=== PATIENT | female | born 1970 | race American Indian/Alaskan Native ===

== ENCOUNTER 2019-12-13 20:06 | Observation (INO) | payer MEDICARE ==
[2019-12-13] MEDS ORDERED: ASPIRIN 325 MG TAB PO ONE (20:57)
--- NOTE | 2019-12-13 22:06 | XRay Report ---
CHEST 1 VIEW INDICATION: Chest Pain COMPARISON: None FINDINGS: SUPPORT DEVICES: None. HEART / MEDIASTINUM: Mild cardiac enlargement LUNGS / PLEURA: Interstitial markings are prominent. No pneumothorax. ADDITIONAL FINDINGS: IMPRESSION: 1. Diffuse interstitial pulmonary edema questionable left ventricular decompensation Signer Name: Petr Moraes MD Signed: 12/13/2019 10:02 PM Workstation Name: [id number]
[2019-12-13 22:09] LABS: Basophils % (Auto) 0.6 % (0.0-1.8); Eosinophils # (Auto) 0.2 K/mm3 (0.0-0.4); Eosinophils % (Auto) 2.5 % (0.0-4.3); Lymphocytes # (Auto) 2.2 K/mm3 (1.2-5.4); Lymphocytes % (Auto) 33.5 % (13.4-35.0); Mean Corpuscular HGB Conc 30 % (30-34); Monocytes # (Auto) 0.7 K/mm3 (0.0-0.8); Monocytes % (Auto) 10.9 % (0.0-7.3); Platelet Count 219 K/mm3 (140-440); Red Cell Distribution Width 18.9 % (13.2-15.2)
[2019-12-13 22:10] LABS: Hemoglobin 11.8 gm/dl (10.1-14.3); Mean Corpuscular Volume 65 fl (79-97)
--- NOTE | 2019-12-13 22:10 | Emergency Department Report ---
ED Shortness of Breath HPI - General Chief Complaint: Dyspnea/Respdistress Stated Complaint: RT SIDE PAIN Time Seen by Provider: 12/13/19 21:59 Source: patient Mode of arrival: Ambulatory Limitations: No Limitations - History of Present Illness Initial Comments: Patient is a 49-year-old female that presents emergency room with complaints of shortness of breath, dizziness, difficulties breathing, right-sided body pain. Patient states her symptoms started 2 days ago. Patient dates her symptoms are worsening. Patient denies syncope. Patient denies chest pain. Patient denies fever or chills. Patient denies cough. Patient states that the right-sided body pain is a 10 out of 10. Patient states the body pain is worse with movement and better with rest. Patient denies blurry vision. Patient denies headache. Patient states she has a history of asthma but states this does not feel like asthma. Patient denies cough and wheezing. Patient states her asthma has been controlled. Patient denies recent travel. Patient denies recent international travel. Patient denies exposure to the novel coronavirus. Patient denies sick contacts. Patient denies fever and chills. Patient denies cough. Patient denies diarrhea. Patient denies coming in contact with anybody with symptoms of the novel coronavirus. Complaint: shortness of breath -: Sudden Severity: severe Pain Scale: 10 Quality: stabbing Consistency: constant Improves With: rest Worsens With: movement Known History Of: asthma, other (h/o anemia) Treatments Prior to Arrival: none - Related Data Home Medications Medication Instructions Recorded Confirmed Last Taken ALBUTEROL Inhaler(NF) [VENTOLIN 1 inh PO DAILY PRN 01/19/18 01/19/18 Unknown Inhaler(NF)] Azelastine HCl [Azelastine HCl 1 drop OU BID 01/19/18 01/19/18 Unknown 0.05%] Dronedarone HCl [Multaq] 400 mg PO DAILY 01/19/18 01/19/18 Unknown Ferrous Sulfate [Feosol] 325 mg PO TID 01/19/18 01/19/18 Unknown Fluorometholone Acetate [Flarex 1 - 2 drops OP BID 01/19/18 01/19/18 Unknown 0.1% Eye Drops] Gabapentin [Neurontin] 300 mg PO Q8HR 01/19/18 01/19/18 Unknown Metoprolol [Lopressor] 25 mg PO BID 01/19/18 01/19/18 Unknown Midodrine [Proamatine] 5 mg PO BID 01/19/18 01/19/18 Unknown Morphine [Morphine TAB] 15 mg PO BID 01/19/18 01/19/18 Unknown Previous Rx's Medication Instructions Recorded Last Taken Type Ibuprofen [Motrin 800 MG tab] 800 mg PO Q8HR #30 tablet 01/20/18 Unknown Rx Allergies Allergy/AdvReac Type Severity Reaction Status Date / Time ciprofloxacin [From Cipro] Allergy Swelling Verified 01/19/18 22:00 hydrocodone Allergy Hives Verified 01/19/18 22:00 meperidine [From Demerol] Allergy Hives Verified 01/19/18 22:00 metronidazole [From Flagyl] Allergy Hives Verified 01/19/18 22:00 Penicillins Allergy Unknown Verified 01/19/18 22:00 tramadol Allergy Rash Verified 01/19/18 22:00 ED Review of Systems ROS: Stated complaint: RT SIDE PAIN Other details as noted in HPI Constitutional: denies: chills, fever Eyes: denies: eye pain, eye discharge, vision change ENT: denies: ear pain, throat pain Respiratory: shortness of breath, SOB with exertion, SOB at rest. denies: cough, wheezing Cardiovascular: denies: chest pain, palpitations Endocrine: no symptoms reported Gastrointestinal: denies: abdominal pain, nausea, diarrhea Genitourinary: denies: urgency, dysuria, discharge Musculoskeletal: denies: back pain, joint swelling, arthralgia Skin: denies: rash, lesions Neurological: denies: headache, weakness, paresthesias Psychiatric: denies: anxiety, depression Hematological/Lymphatic: denies: easy bleeding, easy bruising ED Past Medical Hx - Past Medical History Previous Medical History?: Yes Hx Headaches / Migraines: Yes Hx Asthma: Yes Additional medical history: syncope episode, atrial fibrillation, loop recorder,anemia-blood transfusion,hydraenitis. MORBID OBESITY - Surgical History Past Surgical History?: Yes Additional Surgical History: UFE, Lumber surgery,infection in breast,. UTERINE EMBOLIZATION. Loop recorder - Family History Family history: no significant - Social History Smoking Status: Never Smoker Substance Use Type: None - Medications Home Medications: Home Medications Medication Instructions Recorded Confirmed Last Taken Type ALBUTEROL Inhaler(NF) [VENTOLIN 1 inh PO DAILY PRN 01/19/18 01/19/18 Unknown History Inhaler(NF)] Azelastine HCl [Azelastine HCl 1 drop OU BID 01/19/18 01/19/18 Unknown History 0.05%] Dronedarone HCl [Multaq] 400 mg PO DAILY 01/19/18 01/19/18 Unknown History Ferrous Sulfate [Feosol] 325 mg PO TID 01/19/18 01/19/18 Unknown History Fluorometholone Acetate [Flarex 1 - 2 drops OP BID 01/19/18 01/19/18 Unknown History 0.1% Eye Drops] Gabapentin [Neurontin] 300 mg PO Q8HR 01/19/18 01/19/18 Unknown History Metoprolol [Lopressor] 25 mg PO BID 01/19/18 01/19/18 Unknown History Midodrine [Proamatine] 5 mg PO BID 01/19/18 01/19/18 Unknown History Morphine [Morphine TAB] 15 mg PO BID 01/19/18 01/19/18 Unknown History Ibuprofen [Motrin 800 MG tab] 800 mg PO Q8HR #30 tablet 01/20/18 Unknown Rx ED Physical Exam - General Limitations: No Limitations General appearance: alert, in no apparent distress, obese - Head Head exam: Present: atraumatic, normocephalic - Eye Eye exam: Present: normal appearance - ENT ENT exam: Present: mucous membranes moist - Neck Neck exam: Present: normal inspection - Respiratory Respiratory exam: Present: normal lung sounds bilaterally, decreased breath sounds. Absent: respiratory distress, wheezes, rales - Cardiovascular Cardiovascular Exam: Present: regular rate, normal rhythm. Absent: systolic murmur, diastolic murmur, rubs, gallop - GI/Abdominal GI/Abdominal exam: Present: soft, normal bowel sounds - Extremities Exam Extremities exam: Present: normal inspection - Back Exam Back exam: Present: normal inspection - Neurological Exam Neurological exam: Present: alert, oriented X3 - Psychiatric Psychiatric exam: Present: normal affect, normal mood - Skin Skin exam: Present: warm, dry, intact, normal color. Absent: rash ED Course Vital Signs 12/13/19 12/13/19 12/13/19 20:44 22:51 23:15 Temperature 97.9 F Pulse Rate 94 H Respiratory 18 14 Rate Blood Pressure 177/111 193/109 O2 Sat by Pulse 100 Oximetry 12/13/19 12/13/19 12/14/19 23:31 23:45 00:00 Temperature Pulse Rate Respiratory Rate Blood Pressure 158/94 158/94 154/100 O2 Sat by Pulse 100 100 100 Oximetry 12/14/19 12/14/19 12/14/19 00:15 01:11 01:15 Temperature Pulse Rate 93 H 96 H 90 Respiratory 21 14 21 Rate Blood Pressure 154/100 149/92 148/89 O2 Sat by Pulse 100 100 100 Oximetry 12/14/19 01:30 Temperature Pulse Rate 103 H Respiratory 12 Rate Blood Pressure 144/90 O2 Sat by Pulse 98 Oximetry - Reevaluation(s) Reevaluation #1: Patient states her pain is better. 12/14/19 00:06 Reevaluation #2: I discussed all results with patient. I discussed plan of care with patient. Patient agrees with plan of care and admission. Patient to be admitted to the hospitalist service. 12/14/19 01:27 - Consultations Consultation #1: Hospitalist consulted for admission. Hospitalist to admit patient. 12/14/19 01:17 ED Medical Decision Making - Lab Data Result diagrams: 12/13/19 21:44 12/13/19 21:44 - EKG Data -: EKG Interpreted by [facility] EKG shows normal: axis, intervals, QRS complexes, ST-T waves Rate: normal - EKG Data Interpretation: other (Atrial fibrillation) - Radiology Data Radiology results: report reviewed CHEST 1 VIEW INDICATION: Chest Pain COMPARISON: None FINDINGS: SUPPORT DEVICES: None. HEART / MEDIASTINUM: Mild cardiac enlargement LUNGS / PLEURA: Interstitial markings are prominent. No pneumothorax. ADDITIONAL FINDINGS: IMPRESSION: 1. Diffuse interstitial pulmonary edema questionable left ventricular decompensation CTA of the chest with 3D Reconstruction Indication: ,sob. hypoxia Technique: TECHNIQUE: Axial CT images were obtained through the chest after injection of 100 cc of Omnipaque 350 IV contrast. 3 plane MIP reconstructions were produced. All CT scans at this location are pe rformed using CT dose reduction for ALARA by means of automated exposure control. COMPARISON: None Automatic exposure control was utilized in an attempt to reduce radiation dose. Findings: Pulmonary arteries: The main pulmonary artery and right and left pulmonary artery branches fill satisfactorily with contrast. No pulmonary embolus is seen. Lungs: The lungs are clear. Mediastinum: Heart size is normal. No adenopathy is seen. Aorta: Normal in diameter. No dissection seen within limits of this exam. Impression: No pulmonary embolus is seen CT HEAD WITHOUT CONTRAST INDICATION: dizziness TECHNIQUE: Axial slices were obtained through the head. Coronal and sagittal reformatted images were obtained. COMPARISON: None available. FINDINGS: There is no intracranial hemorrhage or extra-axial fluid collection. Ventricles, basilar cisterns, and sulci appear within normal limits for age. There is no mass lesion or midline shift. No acute territorial infarct is identified. Bone windows demonstrate no acute osseous abnormality. Paranasal sinuses and mastoid air cells appear clear. TECHNIQUE: All CT scans at this facility use dose modulation, iterative reconstruction, automated exposure control, weight based dosing, when appropriate, to reduce radiation dose to as low as reasonably achievable. IMPRESSION: 1. No acute intracranial abnormality. - Medical Decision Making Patient is a 49-year-old female that presents emergency room with complaints of shortness of breath and dizziness and left-sided body pain. Patient found to be hypoxic in triage. Patient placed on oxygen. Patient oxygenation responded well to therapy. Patient placed on a environmental monitoring specialist. Patient noted to be in A. fib with a controlled rate. Patient has history of A. fib. Patient had chest x-ray which was shows pulmonary edema. Patient had a head CT for the dizziness. Patient had a CTA due to the shortness of breath and hypoxia. Patient CTA did not show a pulmonary embolism. Patient's labs were essentially unremarkable except for an elevated BNP. Patient's troponin negative x2. Patient was not anemic. Patient given IV Lasix for new onset CHF. Patient admitted to the hospitalist service for further evaluation treatment. - Differential Diagnosis CHF, shortness of breath, hypoxia, pneumonia, anemia, Critical Care Time: Yes Critical care time in (mins) excluding proc time.: 35 Critical care attestation.: If time is entered above; I have spent that time in minutes in the direct care of this critically ill patient, excluding procedure time. Critical Care Time: 35 minutes ED Disposition Clinical Impression: SOB (shortness of breath), Hypoxia, New onset of congestive heart failure, Dizziness, Total body pain Respiratory failure Qualifiers: Chronicity: acute Respiratory failure complication: hypoxia Qualified Code(s): J96.01 - Acute respiratory failure with hypoxia Pulmonary edema Qualifiers: Chronicity: acute Qualified Code(s): J81.0 - Acute pulmonary edema Afib Qualifiers: Atrial fibrillation type: unspecified Qualified Code(s): I48.91 - Unspecified atrial fibrillation Disposition: DC-09 OP ADMIT IP TO THIS HOSP Is pt being admited?: Yes Does the pt Need Aspirin: No Condition: Critical Time of Disposition: 01:26
[2019-12-13] MEDS ORDERED: HYDROmorphone 1 MG/1 ML INJ IV ONE (22:15)
[2019-12-13 22:22] LABS: Blood Urea Nitrogen 11 mg/dL (7-17); Calcium 8.7 mg/dL (8.4-10.2); Hemolysis Index 9
[2019-12-13 22:37] LABS: BUN/Creatinine Ratio 16
--- NOTE | 2019-12-14 00:59 | Cat Scan Report ---
CT HEAD WITHOUT CONTRAST INDICATION: dizziness TECHNIQUE: Axial slices were obtained through the head. Coronal and sagittal reformatted images were obtained. COMPARISON: None available. FINDINGS: There is no intracranial hemorrhage or extra-axial fluid collection. Ventricles, basilar cisterns, an d sulci appear within normal limits for age. There is no mass lesion or midline shift. No acute lis torial infarct is identified. Bone windows demonstrate no acute osseous abnormality. Paranasal sinuses and mastoid air cells appear clear. TECHNIQUE: All CT scans at this facility use dose modulation, iterative reconstruction, automated ex posure control, weight based dosing, when appropriate, to reduce radiation dose to as low as reasonab ly achievable. IMPRESSION: 1. No acute intracranial abnormality. Signer Name: Felix Wayne MD Signed: 12/14/2019 12:54 AM Workstation Name: [id number]
[2019-12-14] MEDS ORDERED: HYDROmorphone 1 MG/1 ML INJ IV ONE (01:11)
--- NOTE | 2019-12-14 01:13 | Cat Scan Report ---
CTA of the chest with 3D Reconstruction Indication: ,sob. hypoxia Technique: TECHNIQUE: Axial CT images were obtained through the chest after injection of 100 cc of Omnipaque 350 IV contrast. 3 plane MIP reconstructions were produced. All CT scans at this location are performed using CT dose reduction for ALARA by means of automated exposure control. COMPARISON: None Automatic exposure control was utilized in an attempt to reduce radiation dose. Findings: Pulmonary arteries: The main pulmonary artery and right and left pulmonary artery branches fill satis factorily with contrast. No pulmonary embolus is seen. Lungs: The lungs are clear. Mediastinum: Heart size is normal. No adenopathy is seen. Aorta: Normal in diameter. No dissection seen within limits of this exam. Impression: No pulmonary embolus is seen Signer Name: Felix Wayne MD Signed: 12/14/2019 1:08 AM Workstation Name: [id number]
[2019-12-14] MEDS ORDERED: FUROSEMIDE 40 MG/4 ML INJ IV ONE ×2 (01:30→04:20)
[2019-12-14] MEDS ORDERED: MAGNESIUM HYDROXIDE (MOM) ORAL LIQD UDC PO PRN (01:48)
[2019-12-14] MEDS ORDERED: ACETAMINOPHEN 325 MG TAB PO PRN (01:48)
[2019-12-14] MEDS ORDERED: ONDANSETRON 4 MG/2 ML INJ IV PRN (01:48)
[2019-12-14] MEDS ORDERED: diphenhydrAMINE 50 MG/ML VIAL IV ONE (01:55)
--- NOTE | 2019-12-14 01:59 | History and Physical Report ---
History of Present Illness Date of examination: 12/14/19 Date of admission: 12/14/2019 Chief complaint: Shortness of Breath History of present illness: 49-year-old -[place] female with known history of asthma, atrial fibrillation, anemia and obesity presenting to the emergency room today complaining of right-sided chest pain or shortness of breath. Patient denies any fever or chills, no nausea or vomiting, no abdominal pain, no hematuria or dysuria. Patient denies any sick contacts and no recent travel. She has had some occasional dizziness but denies any headaches Work-up in the emergency room CT angiogram of the chest shows pulmonary edema, BNP was elevated, CT scan of the head was unremarkable. Patient be admitted for evaluation of her pulmonary edema . Past History Past Medical History: anemia, other (Obesity,Asthma,) Past Surgical History: Other (Uterine embolization, loop recorder placement,Lumbar surgery,) Social history: no significant social history Family history: diabetes (Mother) Medications and Allergies Allergies Allergy/AdvReac Type Severity Reaction Status Date / Time ciprofloxacin [From Cipro] Allergy Swelling Verified 01/19/18 22:00 hydrocodone Allergy Hives Verified 01/19/18 22:00 meperidine [From Demerol] Allergy Hives Verified 01/19/18 22:00 metronidazole [From Flagyl] Allergy Hives Verified 01/19/18 22:00 Penicillins Allergy Unknown Verified 01/19/18 22:00 tramadol Allergy Rash Verified 01/19/18 22:00 Home Medications Medication Instructions Recorded Confirmed Last Taken Type ALBUTEROL Inhaler(NF) [VENTOLIN 1 puff IH DAILY PRN 01/19/18 12/14/19 Unknown History Inhaler(NF)] Dronedarone HCl [Multaq] 400 mg PO DAILY 01/19/18 12/14/19 12/13/19 History Ferrous Sulfate [Feosol] 325 mg PO TID 01/19/18 12/14/19 12/13/19 History Fluorometholone Acetate [Flarex 1 drops OP BID 01/19/18 12/14/19 12/13/19 History 0.1% Eye Drops] Metoprolol [Lopressor] 50 mg PO BID 01/19/18 12/14/19 12/13/19 History Midodrine [Proamatine] 2.5 mg PO BID 01/19/18 12/14/1912/12/20 History Ascorbic Acid/Ascorbate Sodium 500 mg PO DAILY 12/14/19 12/14/19 12/13/19 History [Vit C-Paola Hips 500 mg Chew Tb] Ibuprofen [Motrin 800 MG tab] 800 mg PO Q8HR PRN 12/14/19 12/14/19 Unknown His tory Lifitegrast [Xiidra] 1 each OP BID 12/14/19 12/14/19 12/13/19 History Vitamin D3 5,000 UNIT 5,000 units PO DAILY 12/14/19 12/14/19 12/13/19 History Active Meds: Active Medications Acetaminophen (Tylenol) 650 mg PO Q4H PRN PRN Reason: Pain MILD(1-3)/Fever >100.5/VEGA Enoxaparin Sodium (Enoxaparin) 40 mg SUB-Q QDAY@2200 MARIBEL; Protocol Furosemide (Lasix) 40 mg IV BID@0600,1800 [place] Magnesium Hydroxide (Milk Of Magnesia) 30 ml PO Q4H PRN PRN Reason: Constipation Ondansetron HCl (Zofran) 4 mg IV Q8H PRN PRN Reason: Nausea And Vomiting Sodium Chloride (Sodium Chloride Flush Syringe 10 Ml) 10 ml IV BID MARIBEL Sodium Chloride (Sodium Chloride Flush Syringe 10 Ml) 10 ml IV PRN PRN PRN Reason: LINE FLUSH Review of Systems Constitutional: no fever, no chills Ears, nose, mouth and throat: no nasal congestion, no sore throat Cardiovascular: no chest pain, no palpitations, no syncope Respiratory: shortness of breath, no cough Gastrointestinal: no nausea, no vomiting, no diarrhea Genitourinary Female: no flank pain, no dysuria, no hematuria Musculoskeletal: no neck pain, no low back pain Integumentary: no rash, no pruritis Neurological: no headaches, no confusion Psychiatric: no anxiety, no depression Exam - Constitutional Vitals: Temp Pulse Resp BP Pulse Ox 97.9 F 103 H 12 144/90 98 12/13/19 20:44 12/14/19 01:30 12/14/19 01:30 12/14/19 01:30 12/14/19 01:30 General appearance: Present: no acute distress, well-nourished, obese - EENT Eyes: Present: PERRL, EOM intact ENT: hearing intact, clear oral mucosa, dentition normal - Neck Neck: Present: supple, normal ROM - Respiratory Respiratory effort: normal Respiratory: bilateral: diminished - Cardiovascular Rhythm: regular Heart Sounds: Present: S1 & S2. Absent: gallop, systolic murmur, diastolic murmur, rub - Extremities Extremities: no ischemia, pulses intact, Full ROM Extremity abnormal: edema (Trace Bilateral ankle edema) Peripheral Pulses: within normal limits - Abdominal General gastrointestinal: Present: soft, non-tender, non-distended, normal bowel sounds. Absent: mass - Integumentary Integumentary: Present: clear, warm, dry - Musculoskeletal Musculoskeletal: strength equal bilaterally - Psychiatric Psychiatric: appropriate mood/affect, intact judgment & insight, memory intact, cooperative - Neurologic Neurologic: CNII-XII intact, no focal deficits, moves all extremities HEART Score - HEART Score Troponin: Troponin T < 0.010 ng/mL (0.00-0.029) 12/13/19 23:25 Results - Labs CBC & Chem 7: 12/13/19 21:44 12/13/19 21:44 Labs: Abnormal lab results 12/13/19 Range/Units 21:44 RBC 6.00 H (3.65-5.03) M/mm3 MCV 65 L (79-97) fl MCH 20 L (28-32) pg RDW 18.9 H (13.2-15.2) % [place] % (Auto) 10.9 H (0.0-7.3) % Assessment and Plan - Patient Problems (1) New onset of congestive heart failure Current Visit: Yes Status: Acute Plan to address problem: Patient admitted and placed on diuretics. Will check inputs and outputs and also monitor daily weights. Patient will be scheduled for echocardiogram. We will place consult to cardiology for evaluation and recommendation. (2) Hypoxia Current Visit: Yes Status: Acute Plan to address problem: Possibly secondary to early pulmonary edema. We will keep oxygen saturation greater or equal to 92%. (3) Morbid obesity with BMI of 50.0-59.9, adult Current Visit: Yes Status: Acute Plan to address problem: Patient counseled on weight reduction. We will schedule dietary consult. (4) History of atrial fibrillation Current Visit: Yes Status: Acute Plan to address problem: Rate is controlled. We will continue routine home medications. (5) DVT prophylaxis Current Visit: Yes Status: Acute Plan to address problem: Patient placed on subcutaneous Lovenox. (6) Full code status Current Visit: Yes Status: Acute
[2019-12-14] MEDS ORDERED: FUROSEMIDE 40 MG/4 ML INJ IV SCH (06:00)
[2019-12-14] MEDS ORDERED: IBUPROFEN 800 MG TAB PO PRN (07:06)
[2019-12-14] MEDS ORDERED: ALBUTEROL 2.5 MG/3 ML NEBU IH PRN (07:12)
[2019-12-14] MEDS: FERROUS SULFATE 325 MG TAB PO SCH ×2 (08:00→14:43)
--- NOTE | 2019-12-14 09:08 | Consultation ---
History of Present Illness Consult date: 12/14/19 Consult reason: atrial fibrillation History of present illness: Patient is presenting with right sided pain extending from her shoulder all the way down to her right foot. Patient denies chest pain or shortness of breath. Patient is visiting from [place]. She has a psychiatric arnp in [place] following her for atrial fibrillation and recurrent syncope. She has am implantable loop recorder. Patient denies acute episodes of syncope prior to admission. Patient states that she had a cardiac work-up included stress test and echo back in April 2019 - results were normal. ECG is showing atrial fibrillation. CT chest showing NAP. BNP is normal. Troponin negative x 2. Patient reports history of cervical spine disease (bulgind disc). She was planned for outpatient surgery at one time. Past History Past Medical History: anemia, other (Obesity,Asthma,) Past Surgical History: Other (Uterine embolization, loop recorder placement,Lumbar surgery,) Social history: no significant social history Family history: diabetes (Mother) Medications and Allergies Allergies Allergy/AdvReac Type Severity Reaction Status Date / Time ciprofloxacin [From Cipro] Allergy Swelling Verified 01/19/18 22:00 hydrocodone Allergy Hives Verified 01/19/18 22:00 meperidine [From Demerol] Allergy Hives Verified 01/19/18 22:00 metronidazole [From Flagyl] Allergy Hives Verified 01/19/18 22:00 Penicillins Allergy Unknown Verified 01/19/18 22:00 tramadol Allergy Rash Verified 01/19/18 22:00 Home Medications Medication Instructions Recorded Confirmed Last Taken Type ALBUTEROL Inhaler(NF) [VENTOLIN 1 puff IH DAILY PRN 01/19/18 12/14/19 Unknown History Inhaler(NF)] Dronedarone HCl [Multaq] 400 mg PO DAILY 01/19/18 12/14/19 12/13/19 History Ferrous Sulfate [Feosol] 325 mg PO TID 01/19/18 12/14/19 12/13/19 History Fluorometholone Acetate [Flarex 1 drops OP BID 01/19/18 12/14/19 12/13/19 History 0.1% Eye Drops] Metoprolol [Lopressor] 50 mg PO BID 01/19/18 12/14/19 12/13/19 History Midodrine [Proamatine] 2.5 mg PO BID 1112/14/19 12/13/19 History Ascorbic Acid/Ascorbate Sodium 500 mg PO DAILY 12/14/19 12/14/19 12/13/19 History [Vit C-[place] Hips 500 mg Chew Tb] Ibuprofen [Motrin 800 MG tab] 800 mg PO Q8HR PRN 12/14/19 12/14/19 Unknown History Lifitegrast [Xiidra] 1 each OP BID 12/14/19 12/14/19 12/13/19 History Vitamin D3 5,000 UNIT 5,000 units PO DAILY 12/14/19 12/14/19 12/13/19 History Active Meds: Active Medications Acetaminophen (Tylenol) 650 mg PO Q4H PRN PRN Reason: Pain MILD(1-3)/Fever >100.5/VEGA Last Admin: 12/14/19 06:50 Dose: 650 mg Documented by: Albuterol (Proventil) 2.5 mg IH Q4HRT PRN PRN Reason: Shortness Of Breath Ascorbic Acid (Vitamin C) 500 mg PO QDAY [facility] Cholecalciferol (Vitamin D3) 5,000 unit PO DAILY [facility] Enoxaparin Sodium (Enoxaparin) 40 mg SUB-Q QDAY@2200 [facility]; Protocol Ferrous Sulfate (Feosol) 325 mg PO TID [facility] Ibuprofen (Ibuprofen) 800 mg PO Q8HR PRN PRN Reason: Pain, Moderate (4-6) Magnesium Hydroxide (Milk Of Magnesia) 30 ml PO Q4H PRN PRN Reason: Constipation Metoprolol Tartrate (Metoprolol) 50 mg PO BID [facility] Midodrine (Proamatine) 2.5 mg PO BID [facility] Miscellaneous Medication (Dronedarone Hcl [Multaq]) 400 mg PO DAILY [facility] Miscellaneous Medication (Fluorometholone Acetate [Flarex 0.1% Eye Drops]) 1 drops OP BID [facility] Miscellaneous Medication (Lifitegrast [Xiidra]) 1 each OP BID [facility] Ondansetron HCl (Zofran) 4 mg IV Q8H PRN PRN Reason: Nausea And Vomiting Sodium Chloride (Sodium Chloride Flush Syringe 10 Ml) 10 ml IV BID [facility] Sodium Chloride (Sodium Chloride Flush Syringe 10 Ml) 10 ml IV PRN PRN PRN Reason: LINE FLUSH Review of Systems All systems: negative Physical Examination Vital Signs Temp Resp BP 97.9 F 18 177/111 12/13/19 20:44 12/13/19 20:44 12/13/19 20:44 General appearance: no acute distress HEENT: Positive: PERRL Neck: Positive: neck supple Cardiac: Positive: irregularly irregular Lungs: Positive: Normal Exam Abdomen: Positive: Unremarkable Extremities: Present: edema Results 12/13/19 21:44 12/13/19 21:44 CBC 12/13/19 Range/Units 21:44 WBC 6.5 (4.5-11.0) K/mm3 RBC 6.00 H (3.65-5.03) M/mm3 Hgb 11.8 (10.1-14.3) gm/dl Hct 39.0 (30.3-42.9) % Plt Count 219 (140-440) K/mm3 Lymph # (Auto) 2.2 (1.2-5.4) K/mm3 [place] # (Auto) 0.7 (0.0-0.8) K/mm3 Eos # (Auto) 0.2 (0.0-0.4) K/mm3 Baso # (Auto) 0.0 (0.0-0.1) K/mm3 Comprehensive Metabolic Panel 12/13/19 Range/Units 21:44 Sodium 138 (137-145) mmol/L Potassium 4.3 (3.6-5.0) mmol/L Chloride 100.0 (98-107) mmol/L Carbon Dioxide 24 (22-30) mmol/L BUN 11 (7-17) mg/dL Creatinine 0.7 (0.6-1.2) mg/dL Glucose 87 (65-100) mg/dL Calcium 8.7 (8.4-10.2) mg/dL - EKG Interpretation EKG shows: atrial fibrillation EKG interpretations - Telemetry EKG Rhythm: Atrial Fibrillation Assessment and Plan Persistent atrial fibrillation - rate controlled CHADS-VASC = 2 (female and hypertension) Essential primary hypertension Recurrent syncope s/p loop recorder Right sided bodily pain No chest pain Troponin negative Normal BNP Normal CT chest Prior cardiac work-up April 2019 in [place] - negative per patient Morbid obesity Recommendations: Continue metoprolol for rate control Start eliquis 5 mg po bid Discontinue dronaderone No further cardiac work-up is needed Patient should follow with her ortho/neurosurgeon as outpatient to address neck pain and radiculopathy symptoms.
[2019-12-14] MEDS ORDERED: METOPROLOL TARTRATE 25 MG TAB PO SCH (10:00)
[2019-12-14] MEDS ORDERED: MIDODRINE 5 MG TAB PO SCH (10:00)
[2019-12-14] MEDS ORDERED: DRONEDARONE HCL 400 MG PO SCH (10:00)
[2019-12-14] MEDS ORDERED: LIFITEGRAST OP SCH (10:00)
[2019-12-14] MEDS ORDERED: APIXABAN 5 MG TAB PO SCH (10:00)
[2019-12-14] MEDS ORDERED: ASCORBIC ACID 500 MG TAB PO SCH (10:00)
[2019-12-14] MEDS ORDERED: CHOLECALCIFEROL (VIT D3) 5,000 UNIT TAB PO SCH (10:00)
[2019-12-14] MEDS ORDERED: FLUOROMETHOLONE ACETATE OP SCH (10:00)
--- NOTE | 2019-12-14 10:55 | Progress Note ---
Assessment and Plan (1) New onset of congestive heart failure Current Visit: Yes Status: Acute Plan to address problem: Continue diuretics, monitor I/O and daily weights. echocardiogram f/u with report cardiology consult for evaluation and recommendation. continue BB and start eliquis 5 mg BID No Further cardiac work up recommended Patient should follow with her ortho/neurosurgeon as outpatient to address neck pain and radiculopathy symptoms. (2) Hypoxia likely 2/2 to pulmonary edema Current Visit: Yes Status: Acute Plan to address problem: Continue diuretic oxygen supplement keep 02 sat > 92% (3) Morbid obesity with BMI of 50.0-59.9, adult Current Visit: Yes Status: Acute Plan to address problem: Discussed lifestyle modification and weight reduction. healthy diet-more fruits and vegetables (4) History of atrial fibrillation Current Visit: Yes Status: Acute Plan to address problem: Rate is controlled. Continue home medications. (5) DVT prophylaxis Current Visit: Yes Status: Acute Plan to address problem: Patient placed on subcutaneous Lovenox. (6) Full code status Current Visit: Yes Status: Acute - Patient Problems (1) Dizziness Current Visit: Yes Status: Acute Plan to address problem: CT of the head-negative for acute finding Subjective Date of service: 12/14/19 Principal diagnosis: New onset CHF Interval history: patient seen at bedside. reviewed lab, mar, and v/s cardiology consult-reviwed not Continue metoprolol for rate control Start eliquis 5 mg po bid Discontinue dronaderone No further cardiac work-up is needed Patient should follow with her ortho/neurosurgeon as outpatient to address neck pain and radiculopathy symptoms. Objective - Constitutional Vitals: Vital Signs - 12hr 12/13/19 12/13/19 12/13/19 23:15 23:31 23:45 Temperature Pulse Rate Respiratory Rate Blood Pressure 193/109 158/94 158/94 O2 Sat by Pulse 100 100 100 Oximetry 12/14/19 12/14/19 12/14/19 00:00 00:15 01:11 Temperature Pulse Rate 93 H 96 H Respiratory 21 14 Rate Blood Pressure 154/100 154/100 149/92 O2 Sat by Pulse 100 100 100 Oximetry 12/14/19 12/14/19 12/14/19 01:15 01:30 01:45 Temperature Pulse Rate 90 103 H 97 H Respiratory 21 12 23 Rate Blood Pressure 148/89 144/90 143/77 O2 Sat by Pulse 100 98 100 Oximetry 12/14/19 12/14/19 12/14/19 02:00 02:21 02:31 Temperature Pulse Rate 101 H 92 H Respiratory 12 18 Rate Blood Pressure 141/87 145/90 147/84 O2 Sat by Pulse 100 100 99 Oximetry 12/14/19 12/14/19 12/14/19 02:41 03:01 04:00 Temperature 98.0 F Pulse Rate 77 78 Respiratory 14 20 Rate Blood Pressure 147/84 171/100 O2 Sat by Pulse 100 Oximetry 12/14/19 12/14/19 08:10 10:29 Temperature 97.5 F L Pulse Rate 86 91 H Respiratory 18 Rate Blood Pressure 145/88 115/84 O2 Sat by Pulse 100 Oximetry - Labs CBC & Chem 7: 12/13/19 21:44 12/13/19 21:44 Labs: Abnormal lab results 12/13/19 Range/Units 21:44 RBC 6.00 H (3.65-5.03) M/mm3 MCV 65 L (79-97) fl MCH 20 L (28-32) pg RDW 18.9 H (13.2-15.2) % [place] % (Auto) 10.9 H (0.0-7.3) % HEART Score - HEART Score Troponin: Troponin T < 0.010 ng/mL (0.00-0.029) 12/14/19 02:30
[2019-12-14 12:10] VITALS: BP 153/89
--- NOTE | 2019-12-14 15:16 | Discharge Summary ---
Providers - Providers Date of Admission: 12/14/19 01:29 Date of discharge: 12/14/19 Attending physician: JANIE FLOWER 12/14/19 01:48 Consult to Physician [CONS] Routine Comment: Consulting Provider: MARILYN GALDAMEZ Physician Instructions: Reason For Exam: CHF- New Onset Primary care physician: AGRICULTURE ENGINEER Hospitalization Condition: Stable Hospital course: This is a 49-year-old -[place] female with known history of asthma, atrial fibrillation, anemia and obesity presenting to the emergency room today complaining of right-sided chest pain or shortness of breath. Patient denies any fever or chills, no nausea or vomiting, no abdominal pain, no hematuria or dysuria. Patient denies any sick contacts and no recent travel. She has had some occasional dizziness but denies any headaches Work-up in the emergency room CT angiogram of the chest shows pulmonary edema, BNP was elevated, CT scan of the head was unremarkable. Patient be admitted for evaluation of her pulmonary edema . 1) New onset of congestive heart failure-stabl A-fib History Started on diuretics, BB, and ASA I/O and daily weights. cardiology consult for evaluation and recommendation. continue BB and start eliquis 5 mg BID No cardiac work up recommended Patient reports history of right shoulder and upper side pain and was on pain management Patient advised to follow up with ortho/neurosurgeon as outpatient to address neck pain and radiculopathy symptoms. (2) Hypoxia likely 2/2 to pulmonary edema-resolved (3) Morbid obesity with BMI of 50.0-59.9, adult Discussed lifestyle modification and weight reduction. healthy diet-more fruits and vegetables Advised pt that weight reduction can help with her back pain problem (4) History of atrial fibrillation Rate is controlled. discharged home on BB and Eliquis and Discontinue dronaderone CT chest showing NAP. BNP is normal. Troponin negative x 2. At discharge assessment, patient denies chest pain, shortness of breath and n/v. patient advised to follow up with her PCP and business systems administrator Disposition: - TO HOME OR SELFCARE Time spent for discharge: > 35 minutes - Discharge Diagnoses (1) Dizziness Status: Acute Core Measure Documentation - Palliative Care Palliative Care/ Comfort Measures: Not Applicable - Core Measures Any of the following diagnoses?: none Exam - Constitutional Vitals: Temp Pulse Resp BP Pulse Ox 97.8 F 92 H 18 153/89 100 12/14/19 12:06 12/14/19 12:06 12/14/19 12:06 12/14/19 12:06 12/14/19 12:06 General appearance: Present: no acute distress, obese - EENT Eyes: Present: PERRL ENT: hearing intact, clear oral mucosa - Neck Neck: Present: supple, normal ROM - Respiratory Respiratory effort: normal Respiratory: bilateral: diminished - Cardiovascular Heart rate: 68 Heart Sounds: Present: S1 & S2. Absent: rub, click - Extremities Extremities: pulses symmetrical, No edema Peripheral Pulses: within normal limits - Abdominal General gastrointestinal: Present: soft, non-tender, non-distended, normal bowel sounds Female genitourinary: Present: normal - Integumentary Integumentary: Present: clear, warm, dry - Musculoskeletal Musculoskeletal: gait normal, strength equal bilaterally - Psychiatric Psychiatric: appropriate mood/affect, intact judgment & insight - Neurologic Neurologic: CNII-XII intact, moves all extremities - Allied Health Allied health notes reviewed: nursing Plan Weight Bearing Status: Full Weight Bearing Diet: low fat, low cholesterol, low salt, low carbohydrate Special Instructions: record daily BP diary, smoking cessation Follow up with: PRIMARY CARE, [Primary Care Provider] - 7 Days
[2019-12-14] MEDS ORDERED: ENOXAPARIN 40 MG/0.4 ML INJ SUB-Q SCH (22:00)
== END 2019-12-14 17:15 | disposition home or self-care (01) ==
LOC: ED 20:06 → 4A 12-14 01:29
PROVIDERS: ADMIT Internal Medicine Geriatric Medicine; ATTEND Internal Medicine
DX: J96.01 Acute respiratory failure with hypoxia (principal); I50.9 Heart failure, unspecified; I48.91 Unspecified atrial fibrillation; D64.9 Anemia, unspecified; J45.909 Unspecified asthma, uncomplicated; G43.909 Migraine, unspecified, not intractable, without status migrainosus; R55 Syncope and collapse; J81.0 Acute pulmonary edema; L73.2 Hidradenitis suppurativa; E66.01 Morbid (severe) obesity due to excess calories; Z68.43 Body mass index [BMI] 50.0-59.9, adult; Z98.890 Other specified postprocedural states
CPT/HCPCS: 36415; 70450; 71045; 71275; 80048; 83880; 84484; 85025; 93005; 94640; 94760; 96374; 96375; 96376; 99291; G0378; J1170; J1200; J1940; Q9967

== ENCOUNTER 2020-01-08 13:14 | Emergency (ER) | payer MEDICARE ==
[2020-01-08 15:10] LABS: Basophils # (Auto) 0.1 K/mm3 (0.0-0.1); Basophils % (Auto) 1.1 % (0.0-1.8); Eosinophils # (Auto) 0.1 K/mm3 (0.0-0.4); Eosinophils % (Auto) 2.1 % (0.0-4.3); Lymphocytes # (Auto) 1.8 K/mm3 (1.2-5.4); Mean Corpuscular HGB Conc 30 % (30-34); Monocytes # (Auto) 0.6 K/mm3 (0.0-0.8); Monocytes % (Auto) 9.7 % (0.0-7.3); Platelet Count 201 K/mm3 (140-440); Red Blood Count 5.93 M/mm3 (3.65-5.03); Red Cell Distribution Width 19.4 % (13.2-15.2)
[2020-01-08 15:13] LABS: Hemoglobin 11.8 gm/dl (10.1-14.3); Mean Corpuscular Volume 66 fl (79-97)
[2020-01-08 15:25] LABS: Alanine Aminotransferase 14 units/L (7-56); Blood Urea Nitrogen 15 mg/dL (7-17); Hemolysis Index 1
[2020-01-08 15:28] LABS: BUN/Creatinine Ratio 21
[2020-01-08 15:55] LABS: Bacteria,Urine 1+ /HPF (Negative); Bilirubin,Urine NEG (Negative); Blood,Urine SM (Negative); Color,Urine Yellow (Yellow); Mucus,Urine FEW /HPF; Urobilinogen,Urine < 2.0 mg/dL (<2.0)
[2020-01-08] MEDS ORDERED: KETOROLAC 30 MG/1 ML INJ IV ONE (16:50)
--- NOTE | 2020-01-08 17:18 | Emergency Department Report ---
ED General Adult HPI - General Chief complaint: Abdominal Pain Stated complaint: ABD AND BACK PAIN Time Seen by Provider: 01/08/20 16:28 Source: patient Mode of arrival: Wheelchair Limitations: No Limitations - History of Present Illness Initial comments: The patient was evaluated in the emergency department for symptoms described in the history of present illness. He/she was evaluated in the context of the global COVID-19 pandemic, which necessitated consideration that the patient might be at risk for infection with the virus that causes COVID-19. Institutional protocols and algorithms that pertain to the evaluation of patients at risk for COVID-19 are in a state of rapid change based on information released by regulatory bodies including the CDC and federal and state organizations. These policies and algorithms were followed during the jim santillan's care in the emergency department. Please note that these policies, procedures and recommendations changed on a rapid basis. 49-year-old morbid obese female with a history of A. fib syncopal episodes irregular heart rate and loop recording, anemia lumbar surgery. Presents to the emergency room complaining of severe abdominal pain and back pain with nausea vomiting. Vomited twice last 4 AM. She denies any hematuria denies any hematemesis. She reports that the pain is worse when she is sitting down in getting up. Patient denies any dysuria. She denies any trauma no increased dmitry ght. She does have a history of a ruptured disc with lumbar surgery on the left. She also complains of abdominal pain that is deep. It was noted that her blood pressure was 170/103 and heart rate is 103. She was last seen here in December 14, 2019 and was discharged on Eliquis metoprolol,Xiidra, vitamin D3 Zorich acid. Patient reports she had completed her medications and has not followed back up with any provider. - Related Data Home Medications Medication Instructions Recorded Confirmed Last Taken ALBUTEROL Inhaler(NF) [VENTOLIN 1 puff IH DAILY PRN 01/19/18 12/14/19 Unknown Inhaler(NF)] Ferrous Sulfate [Feosol 325 MG tab] 325 mg PO TID 01/19/18 12/14/19 12/13/19 Fluorometholone Acetate [Flarex 1 drops OP BID 01/19/18 12/14/19 12/13/19 0.1% Eye Drops] Ascorbic Acid/Ascorbate Sodium 500 mg PO DAILY 12/14/19 12/14/1920 [Vit C-Paola Hips 500 mg Chew Tb] Lifitegrast [Xiidra] 1 each OP BID 12/14/19 12/14/19 12/13/19 Vitamin D3 5,000 UNIT 5,000 units PO DAILY 12/14/19 12/14/19 12/13/19 Previous Rx's Medication Instructions Recorded Last Taken Type ALBUTEROL NEB's [Proventil 0.083% 2.5 mg IH Q4HRT PRN nebu 12/14/19 Unknown Rx NEBS] Acetaminophen [Acetaminophen TAB] 650 mg PO Q4H PRN tablet 12/14/19 Unknown Rx Cholecalciferol (Vitamin D3) 5,000 unit PO DAILY tablet 12/14/19 Unknown Rx [Vitamin D3] Apixaban [Eliquis] 5 mg PO Q12HR 30 Days #60 tablet 01/08/20 Unknown Rx Metoprolol [Lopressor TAB] 50 mg PO BID 30 Days #60 tablet 01/08/20 Unknown Rx Allergies Allergy/AdvReac Type Severity Reaction Status Date / Time ciprofloxacin [From Cipro] Allergy Swelling Verified 01/19/18 22:00 hydrocodone Allergy Hives Verified 01/19/18 22:00 meperidine [From Demerol] Allergy Hives Verified 01/19/18 22:00 metronidazole [From Flagyl] Allergy Hives Verified 01/19/18 22:00 Penicillins Allergy Unknown Verified 01/19/18 22:00 tramadol Allergy Rash Verified 01/19/18 22:00 ED Review of Systems ROS: Stated complaint: ABD AND BACK PAIN Other details as noted in HPI ED Past Medical Hx - Past Medical History Previous Medical History?: Yes Hx Headaches / Migraines: Yes Hx Asthma: Yes Additional medical history: syncope episode,irregular heart rate, loop recorder,anemia-blood transfusion,hydraenitis. MORBID OBESITY - Surgical History Past Surgical History?: Yes Additional Surgical History: UFE, Lumber surgery,infection in breast,. UTERINE EMBOLIZATION - Social History Smoking Status: Never Smoker Substance Use Type: None - Medications Home Medications: Home Medications Medication Instructions Recorded Confirmed Last Taken Type ALBUTEROL Inhaler(NF) [VENTOLIN 1 puff IH DAILY PRN 01/19/18 12/14/19 Unknown History Inhaler(NF)] Ferrous Sulfate [Feosol 325 MG tab] 325 mg PO TID 01/19/18 12/14/19 12/13/19 History Fluorometholone Acetate [Flarex 1 drops OP BID 01/19/18 12/14/19 12/13/19 History 0.1% Eye Drops] ALBUTEROL NEB's [Proventil 0.083% 2.5 mg IH Q4HRT PRN nebu 12/14/19 Unknown Rx NEBS] Acetaminophen [Acetaminophen TAB] 650 mg PO Q4H PRN tablet 12/14/19 Unknown Rx Ascorbic Acid/Ascorbate Sodium 500 mg PO DAILY 12/14/19 12/14/19 12/13/19 History [Vit C-Paola Hips 500 mg Chew Tb] Cholecalciferol (Vitamin D3) 5,000 unit PO DAILY tablet 12/14/19 Unknown Rx [Vitamin D3] Lifitegrast [Xiidra] 1 each OP BID 12/14/19 12/14/19 12/13/19 History Vitamin D3 5,000 UNIT 5,000 units PO DAILY 12/14/19 12/14/19 12/13/19 History Apixaban [Eliquis] 5 mg PO Q12HR 30 Days #60 tablet 01/08/20 Unknown Rx Metoprolol [Lopressor TAB] 50 mg PO BID 30 Days #60 tablet 01/08/20 Unknown Rx ED Physical Exam - General Limitations: No Limitations General appearance: alert, in distress, obese - Head Head exam: Present: atraumatic, normocephalic - Eye Eye exam: Present: normal appearance - ENT ENT exam: Present: normal exam, mucous membranes moist - Neck Neck exam: Present: normal inspection, full ROM - Respiratory Respiratory exam: Absent: accessory muscle use - Cardiovascular Cardiovascular Exam: Present: regular rate, normal rhythm. Absent: systolic murmur, diastolic murmur, rubs, gallop - GI/Abdominal GI/Abdominal exam: Absent: distended, tenderness - Back Exam Back exam: Present: tenderness, muscle spasm, vertebral tenderness - Neurological Exam Neurological exam: Present: alert, oriented X3 - Psychiatric Psychiatric exam: Present: normal affect, normal mood - Skin Skin exam: Present: warm, dry, intact, normal color. Absent: rash ED Course Vital Signs 01/08/20 14:23 Temperature 97.7 F Pulse Rate 103 H Respiratory 18 Rate Blood Pressure 170/103 O2 Sat by Pulse 96 Oximetry ED Medical Decision Making - Lab Data Result diagrams: 01/08/20 14:39 01/08/20 14:39 - Radiology Data Radiology results: report reviewed CONTRAST ENHANCED CT SCAN OF THE LUMBAR SPINE: HISTORY: Back pain; tenderness; history of surgery COMPARISON: None TECHNIQUE: CT images of the lumbar spine were obtained without contrast. Sagittal and coronal reformats were postprocessed.All CT scans at this location are performed using CT dose reduction for ALARA by means of automated exposure control. CONTRAST: 100 mL of Omnipaque 300 FINDINGS: This is a limited CT scan due to body habitus. Alignment: Normal. Normal lumbar lordosis Vertebrae:No significant abnormality. No fracture. Disc Spaces: : Facet joint hypertrophic changes at T10-T11 and T11-T12 disc levels. Bony canal normal at both levels. Right neuroforamen narrowed at T11-T12 disc level. T12- L1 disc space is normal. L1-L2: Normal L2-L3: Bulging disc; neuroforamina are normal L3-L4: Normal L4-L5 : Loss of disc height; bulging disc; foraminal and lateral recess stenoses bilaterally L5-S1: Last disc space: Transitional; neuroforamina are normal Additional Findings: Multiple areas of curvilinear calcifications in the uterus IMPRESSION: Limited CT scan due to body habitus At L4-L5 disc level, bilateral foraminal and lateral recess stenoses Signer Name: Eda Roth MD Signed: 01/08/2020 6:50 PM Workstation Name: [id number] CT ABDOMEN AND PELVIS WITH IV CONTRAST INDICATION: Abdominal tenderness and pain. COMPARISON: None available. TECHNIQUE: Axial CT images were obtained through the abdomen and pelvis after 100 mL IV contrast. All CT scans at this location are performed using CT dose reduction for ALARA by means of automated exposure control. FINDINGS -- ABDOMEN: Lung Bases: No acute abnormality. Liver: Normal. Gallb ladder: Cholelithiasis. Bile Ducts: Normal. Pancreas: Normal. Spleen: Normal. Adrenals: Normal. Right Kidney and Proximal Ureter: Normal. Left Kidney and Proximal Ureter: Normal. Stomach and Bowel: Normal. Lymph Nodes: No significant adenopathy. Aorta: No significant abnormality. IVC: Normal. Additional Findings: None. FINDINGS -- PELVIS: Urinary Bladder and Distal Ureters: Normal. Reproductive Organs: Enlarged, fibroid uterus that contains multiple calcified fibroids.. The right adnexa appears to contain a cystic lesion that measures about 3 cm in diameter. This is difficult to visualize given significant streak artifact secondary to body habitus/ technique. Appendix: Not well identified. Bowel: No acute abnormality. Free Fluid: None. Lymph Nodes: No significant adenopathy. Additional Findings: None. Skeletal System: Thoracolumbar degenerative changes. IMPRESSION: Enlarged, fibroid uterus. 3 cm cystlike lesion identified arising from the right adnexal region. Please see above comments. Cholelithiasis. Signer Name: Juan Mejias MD Signed: 01/08/2020 6:44 PM Workstation Name: [id number] - Medical Decision Making 49-year-old morbid obese female with a history of A. fib syncopal episodes irregular heart rate and loop recording, anemia lumbar surgery. Presents to the emergency room complaining of severe abdominal pain and back pain with nausea vomiting. Vomited twice last 4 AM. She denies any hematuria denies any hematem esis. She reports that the pain is worse when she is sitting down in getting up. Patient denies any dysuria. She denies any trauma no increased weight. She does have a history of a ruptured disc with lumbar surgery on the left. She also complains of abdominal pain that is deep. It was noted that her blood pressure was 170/103 and heart rate is 103. She was last seen here in December 14, 2019 and was discharged on Eliquis metoprolol,Xiidra, vitamin D3 Zorich acid. Patient reports she had completed her medications and has not followed back up with any provider. CT with contrast of lumbar and abdomen pelvis. IV Toradol. CT results shows degenerative disc disease as well as a calcified fibroid. Lactic acid is 1.30 labs are stable. Urine is negative. Recommend follow-up with a primary care provider in a [facility] as well as a program development specialist. Discussed with patient she needs to take her Eliquis and her metoprolol. Discussed with patient she needs to follow-up with her primary care provider either here or in [place]. Patient verbalized understanding. Critical care attestation.: If time is entered above; I have spent that time in minutes in the direct care of this critically ill patient, excluding procedure time. ED Disposition Clinical Impression: Adnexal cyst, Degenerative disc disease, thoracic, Severely overweight, History of atrial fibrillation, Morbid obesity with BMI of 50.0-59.9, adult Fibroid, uterine Qualifiers: Uterine leiomyoma location: unspecified location Qualified Code(s): D25.9 - Leiomyoma of uterus, unspecified Abdominal pain Qualifiers: Abdominal location: lower abdomen, unspecified Qualified Code(s): R10.30 - Lower abdominal pain, unspecified Back pain Qualifiers: Back pain location: low back pain Chronicity: acute Back pain laterality: bilateral Sciatica presence: without sciatica Qualified Code(s): M54.5 - Low back pain Disposition: DC- TO HOME OR SELFCARE Is pt being admited?: No Does the pt Need Aspirin: No Condition: Stable Instructions: Uterine Fibroids, Abdominal Pain, Adult, [id number], Degenerative Disk Disease, Obesity, Adult, [id number], Abdominal Pain (ED) Additional Instructions: CT shows that you have a calcified fibroid and degenerative disc disease. You also need to take your Eliquis as prescribed take your metoprolol as prescribed follow-up with a primary care provider either here or in [place]. Prescriptions: Apixaban [Eliquis] 5 mg PO Q12HR 30 Days #60 tablet Metoprolol [Lopressor TAB] 50 mg PO BID 30 Days #60 tablet Referrals: [facility] [Provider Group] - 3-5 Days [facility] [Provider Group] - 3-5 Days [facility] [Primary Care Provider] - 3-5 Days [facility] [Provider Group] - 3-5 Days
--- NOTE | 2020-01-08 19:49 | Cat Scan Report ---
CT ABDOMEN AND PELVIS WITH IV CONTRAST INDICATION: Abdominal tenderness and pain. COMPARISON: None available. TECHNIQUE: Axial CT images were obtained through the abdomen and pelvis after 100 mL IV contrast. All CT scans a t this location are performed using CT dose reduction for ALARA by means of automated exposure contro l. FINDINGS -- ABDOMEN: Lung Bases: No acute abnormality. Liver: Normal. Gallbladder: Cholelithiasis. Bile Ducts: Normal. Pancreas: Normal. Spleen: Normal. Adrenals: Normal. Right Kidney and Proximal Ureter: Normal. Left Kidney and Proximal Ureter: Normal. Stomach and Bowel: Normal. Lymph Nodes: No significant adenopathy. Aorta: No significant abnormality. IVC: Normal. Additional Findings: None. FINDINGS -- PELVIS: Urinary Bladder and Distal Ureters: Normal. Reproductive Organs: Enlarged, fibroid uterus that contains multiple calcified fibroids.. The right a dnexa appears to contain a cystic lesion that measures about 3 cm in diameter. This is difficult to v isualize given significant streak artifact secondary to body habitus/technique. Appendix: Not well id entified. Bowel: No acute abnormality. Free Fluid: None. Lymph Nodes: No significant adenopathy. Additional Findings: None. Skeletal System: Thoracolumbar degenerative changes. IMPRESSION: Enlarged, fibroid uterus. 3 cm cystlike lesion identified arising from the right adnexal region. Plea se see above comments. Cholelithiasis. Signer Name: Juan Mejias MD Signed: 01/08/2020 7:44 PM Workstation Name: [id number]
--- NOTE | 2020-01-08 19:55 | Cat Scan Report ---
CONTRAST ENHANCED CT SCAN OF THE LUMBAR SPINE: HISTORY: Back pain; tenderness; history of surgery COMPARISON: None TECHNIQUE: CT images of the lumbar spine were obtained without contrast. Sagittal and coronal reform ats were post-processed.All CT scans at this location are performed using CT dose reduction for ALARA by means of automated exposure control. CONTRAST: 100 mL of Omnipaque 300 FINDINGS: This is a limited CT scan due to body habitus. Alignment: Normal. Normal lumbar lordosis Vertebrae:No significant abnormality. No fracture. Disc Spaces: : Facet joint hypertrophic changes at T10-T11 and T11-T12 disc levels. Bony canal normal at both levels . Right neuroforamen narrowed at T11-T12 disc level. T12-L1 disc space is normal. L1-L2: Normal L2-L3: Bulging disc; neuroforamina are normal L3-L4: Normal L4-L5 : Loss of disc height; bulging disc; foraminal and lateral recess stenoses bilaterally L5-S1: Last disc space: Transitional; neuroforamina are normal Additional Findings: Multiple areas of curvilinear calcifications in the uterus IMPRESSION: Limited CT scan due to body habitus At L4-L5 disc level, bilateral foraminal and lateral recess stenoses Signer Name: Eda Roth MD Signed: 01/08/2020 7:50 PM Workstation Name: [id number]
[2020-01-09 08:56] VITALS: BP 141/91
== END 2020-01-08 22:30 | disposition home or self-care (01) ==
LOC: ED 13:14
DX: D25.9 Leiomyoma of uterus, unspecified (principal); M51.36 Other intervertebral disc degeneration, lumbar region; M51.34 Other intervertebral disc degeneration, thoracic region; E27.8 Other specified disorders of adrenal gland; I48.91 Unspecified atrial fibrillation; R10.9 Unspecified abdominal pain; E66.3 Overweight; G43.909 Migraine, unspecified, not intractable, without status migrainosus; J45.909 Unspecified asthma, uncomplicated; Z68.43 Body mass index [BMI] 50.0-59.9, adult; Z98.890 Other specified postprocedural states; Z79.899 Other long term (current) drug therapy; Z88.1 Allergy status to other antibiotic agents; Z88.8 Allergy status to other drugs, medicaments and biological substances
CPT/HCPCS: 36415; 72132; 74177; 80053; 81001; 82140; 83690; 85025; 87086; 96374; 99284; J1885; Q9967